=== PATIENT | female | born 1950 | race Caucasian/White ===

== ENCOUNTER 2021-11-19 07:56 | Inpatient (IN) | payer MEDICARE, BC ==
[~2021-11-19] VITALS: Ht 157.5 cm; Wt 52.6 kg
--- NOTE | 2021-11-19 07:57 | NUR ---
TO ER BED 3, BIB SELF C/O R SIDED CHEST PAIN SHARP LIKE STARTED 5AM TODAY, NON RADIATING, AAOX3, BREATHING EVEN AND NON LABORED, CONNECTED TO MONITOR.
[2021-11-19 08:50] LABS: BASOPHILS % (AUTO) 0.4 % (0.0-2.0); EOSINOPHILS % (AUTO) 0.3 % (0.0-6.0); HEMATOCRIT 39 % (33-45); HEMOGLOBIN 13.3 g/dL (11.5-14.8); LYMPHOCYTES # (AUTO) 1.3 K/uL (0.8-4.8); MEAN CORPUSCULAR HGB CONC 34 g/dl (31.0-36.0); MEAN CORPUSCULAR VOLUME 91 fL (82-100); MONOCYTES # (AUTO) 0.4 K/uL (0.1-1.30); MONOCYTES % (AUTO) 8.8 % (2.0-12.0); NEUTROPHILS # (AUTO) 2.8 K/uL (1.8-8.9); NEUTROPHILS % (AUTO) 61.5 % (43.0-81.0); PLATELET COUNT (AUTO) 220 K/uL (150-450); RED BLOOD CELL COUNT(AUTO) 4.33 MIL/uL (4.0-5.2); WHITE BLOOD COUNT (AUTO) 4.5 K/uL (4.3-11.0)
[2021-11-19 09:06] LABS: ALANINE AMINOTRANSFERASE 42 U/L (12-78); ALBUMIN 3.7 g/dL (3.4-5.0); ALKALINE PHOSPHATASE 55 U/L (46-116); ASPARTATE AMINOTRANSFERASE 23 U/L (15-37); BILIRUBIN,TOTAL 0.4 mg/dL (0.2-1.0); CALCIUM, SERUM 8.8 mg/dL (8.5-10.1); CARBON DIOXIDE 30 mmol/L (21-32); CHLORIDE 105 mmol/L (98-107); CREATININE 0.7 mg/dL (0.6-1.3); GLUCOSE 88 mg/dL (74-106); POTASSIUM 3.5 mmol/L (3.5-5.1); SODIUM SERUM 138 mmol/L (136-145); TOTAL PROTEIN, SERUM 6.9 g/dL (6.4-8.2); UREA NITROGEN, BLOOD 12 mg/dL (7-18)
[2021-11-19] MEDS ORDERED: ASPIRIN 325 MG TABLET PO ONE (10:30)
[2021-11-19] MEDS ORDERED: ASPIRIN 325 MG TABLET ONE (10:40)
--- NOTE | 2021-11-19 11:00 | NUR ---
CALLED [facility] [phone] NO BEDS AVAILABLE AT THIS TIME. BUT ASKED FOR PT PCP TO CALL THE TRANSFER CENTER.
[2021-11-19] MEDS ORDERED: FLUT16SP (11:07)
[2021-11-19] MEDS ORDERED: GABA-532 PO (11:07)
[2021-11-19] MEDS ORDERED: RIBO400T PO (11:07)
[2021-11-19] MEDS ORDERED: MAGN400T26 PO (11:07)
[2021-11-19] MEDS ORDERED: VITA1TAB56 PO (11:07)
[2021-11-19] MEDS ORDERED: TURM500C9 PO (11:07)
[2021-11-19] MEDS ORDERED: TRAZ-257 PO (11:07)
[2021-11-19] MEDS ORDERED: PANC1CAP PO (11:07)
[2021-11-19] MEDS ORDERED: OMEG1CAP40 PO (11:07)
[2021-11-19] MEDS ORDERED: CRAN425C6 PO (11:07)
[2021-11-19] MEDS ORDERED: THIO100C2 PO (11:07)
[2021-11-19] MEDS ORDERED: OMEP20CA15 PO (11:07)
[2021-11-19] MEDS ORDERED: CALC-1143 PO (11:07)
[2021-11-19] MEDS ORDERED: ALPR0.255 PO (11:07)
[2021-11-19] MEDS ORDERED: BISO5TAB20 PO (11:07)
[2021-11-19] MEDS ORDERED: CHOL400T PO (11:07)
[2021-11-19] MEDS ORDERED: TRAZ-182 PO (11:07)
[2021-11-19] MEDS ORDERED: LACT1CAP71 PO (11:07)
[2021-11-19] MEDS ORDERED: POTA10TA PO (11:07)
--- NOTE | 2021-11-19 11:30 | NUR ---
PATIENT SPOKE TO HER PRIMARY MD AND AGREED TO BE ADMITTED IN [facility] FOR OBSERVATION, AWARE
--- NOTE | 2021-11-19 11:32 | NUR ---
COVID SWAB DONE AND SENT TO LAB
--- NOTE | 2021-11-19 11:38 | NUR ---
[facility] CALLED QUALITY IMPROVEMENT SPECIALIST PAGED.
[2021-11-19] MEDS ORDERED: ACETAMINOPHEN 325 MG TABLET PO PRN (12:00)
[2021-11-19] MEDS ORDERED: ONDANSETRON HCL/PF 4 MG/2 ML VIAL IVP PRN (12:00)
[2021-11-19] MEDS ORDERED: MORPHINE SULFATE INJ 2 MG/ML DISP.SYRIN IV PRN (12:00)
[2021-11-19] MEDS ORDERED: ALPRAZOLAM 0.25 MG TABLET PO PRN (12:00)
[2021-11-19] MEDS ORDERED: LABETALOL 20 MG/4 ML VIAL IV PRN (12:00)
--- NOTE | 2021-11-19 13:31 | NUR ---
REPORT GIVEN TO MEGGAN FOFANA FOR [facility].
--- NOTE | 2021-11-19 13:45 | NUR ---
RN NOTE- PT TRANSFERRED FROM ED TO [facility]-2. ADMIT TELE FOR CHEST PAIN. PT COMFORTABLE . BEGIN ADMIT PROCESS
--- NOTE | 2021-11-19 13:49 | NUR ---
TRANSFERRED TO BED 314 IN STABLE CONDITION
--- NOTE | 2021-11-19 13:50 | NUR ---
RN NOTE-71 Y/O FEMALE ADMITTED TELE FOR CHEST PAIN. PT CAME IN FROM HOME W CHEST PAIN SINCE 0500 THIS AM. PT TOOK ONE CHILDR[employer] ASA TABLET BEFORE COMING. PT VS- BP- 162/85, HR- 62/SR, RR- 20, T- 97.6, SATS 99% RA. PT STATES MINOR PAIN STILL PRESENT IN CHEST ON LEFT SIDE. TROPONIN AT 52, REST OF LABS UNREMARKABLE. IV TO LAC #20G. BOTHERING PT SO IT WAS REMOVED. CT ANGIO CONSENT SIGNED. MIDLINE ORDERED THOUGH PT WILL ACCEPT IV 20g TOMORROW AM BEFORE CT IF TAKEN OUT IMMEDIATELY AFTER. SIDE RAILS UP, BED LOCKED, CALL LIGHT IN REACH. MONITOR / ASSIST
[2021-11-19] MEDS ORDERED: ENOXAPARIN SODIUM 40 MG/0.4 ML DISP.SYRIN SQ SCH ×2 (15:00→18:00)
[2021-11-19 16:02] VITALS: BP 162/85
[2021-11-19] MEDS: CALCIUM CARBONATE 500 MG TAB.CHEW PO SCH (16:28)
[2021-11-19] MEDS ORDERED: HYDROCODONE/APAP 5/325MG TABLET PO PRN (16:30)
[2021-11-19] MEDS ORDERED: GABAPENTIN 300 MG CAPSULE PO SCH (17:00)
--- NOTE | 2021-11-19 18:53 | NUR ---
RN CLOSING NOTE- PT IN ROOM , AOX4, INTERACTIVE AMBULATORY. DENIES PAIN. NORCO TABLET RELIEVED BACK PAIN. PO INTAKE GOOD ,NEEDS ATTENDED. CT SCAN CONSENT READY SIGNED IN CHART. BED LOCKED , SIDE RAILS UP, CALL LIGHT IN REACH.
--- NOTE | 2021-11-19 19:50 | NUR ---
BURNING MACHINE OPERATOR OPENING NOTE PATIENT AWAKE IN ROOM, ALERT/ORIENTED X 3, PT ABLE TO MAKE NEEDS KNOWN. PT STABLE ON RA, NO S/S OF DISTRESS OR SOB NOTED, BREATHING EVEN AND UNLABORED. PT ON EXTERNAL MANGLE FEEDER READING SINUS RHYTHM, HR: 66. NO IV ACCESS NOTED, PER DAY SHIFT NURSE AWARE AND PATIENT AGREED TO INSERTION OF #20G IV ACCESS BEFORE CT ANGIO BUT WANTS IT REMOVED AFTER PROCEDURE. PT IS AMBULATORY AND STABLE. SAFETY MEASURES IN PLACE: CALL LIGHT WITHIN REACH, SIDE RAILS UP X 2, BED LOCKED IN LOWEST POSITION, TABLE WITHIN REACH. WILL CONTINUE TO MONITOR PATIENT
[2021-11-19 20:00] VITALS: BP 129/89
[2021-11-19] MEDS: POTASSIUM CHLORIDE 10 MEQ TABLET.SA PO SCH (21:51)
[2021-11-19] MEDS ORDERED: TRAZODONE 50 MG TABLET PO SCH (22:00)
[2021-11-20] VITALS: BP 143/81
[2021-11-20 04:00] VITALS: BP 154/90
--- NOTE | 2021-11-20 06:57 | NUR ---
PARAGLIDING INSTRUCTOR CLOSING NOTE PATIENT AWAKE IN ROOM, ALERT/ORIENTED X 3, PT ABLE TO MAKE NEEDS KNOWN. PT STABLE ON RA, NO S/S OF DISTRESS OR SOB NOTED, BREATHING EVEN AND UNLABORED. PT ON EXTERNAL MANAGER DRUG READING SINUS RHYTHM, HR: 71. INSERTED IV ACCESS ON LEFT AC #20G, INTACT AND FLUSHING WELL. PT IS AMBULATORY AND STEADY. MEDICATIONS GIVEN ORDERED, PT NEEDS MET THROUGHOUT SHIFT. SAFETY MEASURES IN PLACE: CALL LIGHT WITHIN REACH, SIDE RAILS UP X 2, BED LOCKED IN LOWEST POSITION, TABLE WITHIN REACH. WILL ENDORSE TO DAY SHIFT NURSE FOR CONTINUITY OF CARE
[2021-11-20 07:28] LABS: EOSINOPHILS % (AUTO) 0.5 % (0.0-6.0); HEMATOCRIT 42 % (33-45); HEMOGLOBIN 14.3 g/dL (11.5-14.8); LYMPHOCYTES # (AUTO) 1.7 K/uL (0.8-4.8); LYMPHOCYTES % (AUTO) 32.8 % (20.0-44.0); MEAN CORPUSCULAR HGB CONC 34 g/dl (31.0-36.0); MEAN CORPUSCULAR VOLUME 90 fL (82-100); MONOCYTES # (AUTO) 0.4 K/uL (0.1-1.30); MONOCYTES % (AUTO) 7.8 % (2.0-12.0); NEUTROPHILS # (AUTO) 2.9 K/uL (1.8-8.9); NEUTROPHILS % (AUTO) 57.9 % (43.0-81.0); PLATELET COUNT (AUTO) 244 K/uL (150-450); RED BLOOD CELL COUNT(AUTO) 4.65 MIL/uL (4.0-5.2); WHITE BLOOD COUNT (AUTO) 5.1 K/uL (4.3-11.0)
[2021-11-20] MEDS ORDERED: PANTOPRAZOLE 40 MG TABLET.DR PO SCH (07:30)
--- NOTE | 2021-11-20 07:47 | NUR ---
DIRECTOR OF COMPENSATION OPENING NOTE Patient in bed, awake. A/O x 4, able to make needs known. On room air, breathing evenly and unlabored. No SOB or s/s of distress noted. IV access on LAV #20G SL, intact and patent. On tele monitoring showing SR, HR on the 70's. Safety precautions in place: bed in low, locked position; siderails up x 2; call light within reach. Will continue to monitor.
[2021-11-20 08:12] LABS: ALBUMIN 3.8 g/dL (3.4-5.0); BILIRUBIN,TOTAL 0.5 mg/dL (0.2-1.0); CREATININE 0.8 mg/dL (0.6-1.3); MAGNESIUM 2.3 mg/dL (1.8-2.4); PHOSPHORUS 3.6 mg/dL (2.5-4.9); POTASSIUM 3.4 mmol/L (3.5-5.1); TOTAL PROTEIN, SERUM 7.3 g/dL (6.4-8.2)
[2021-11-20 08:37] VITALS: BP 123/79
--- NOTE | 2021-11-20 08:50 | NUR ---
RN NOTE Patient brought to radiology room for procedure.
[2021-11-20] MEDS ORDERED: MAGNESIUM OXIDE 400 MG TABLET PO SCH (09:00)
[2021-11-20] MEDS ORDERED: FLUTICASONE PROPIONATE 16 GM BOTTLE NS SCH (09:00)
[2021-11-20] MEDS ORDERED: NITROGLYCERIN 0.4 MG/TAB BOTTLE SL ONE (09:00)
[2021-11-20] MEDS ORDERED: VALSARTAN 80 MG TABLET PO SCH (09:00)
[2021-11-20] MEDS ORDERED: ATORVASTATIN 10 MG TABLET PO SCH (09:00)
[2021-11-20] MEDS ORDERED: METOPROLOL TARTRATE INJ 5 MG/5 ML AMPUL IVP PRN (09:00)
[2021-11-20] MEDS ORDERED: POTASSIUM CHLORIDE 20 MEQ TAB.PRT.SR PO ONE (09:00)
[2021-11-20] MEDS ORDERED: CHOLECALCIFEROL (VITAMIN D 3) 400 UNIT TABLET PO SCH (09:00)
[2021-11-20] MEDS: CALCIUM CARBONATE 500 MG TAB.CHEW PO SCH (09:23)
[2021-11-20] MEDS: POTASSIUM CHLORIDE 10 MEQ TABLET.SA PO SCH (09:24)
[2021-11-20 09:25] VITALS: BP 125/79
--- NOTE | 2021-11-20 09:25 | NUR ---
RN NOTE Patient brought back to room 314-1.
[2021-11-20 10:25] LABS: CHOLESTEROL 183 mg/dL (<200); HDL CHOLESTEROL 82 mg/dL (40-60); LDL 84 mg/dL (0-99); TRIGLYCERIDES 54 mg/dL (30-150)
--- NOTE | 2021-11-20 11:00 | NUR ---
RN NOTE Received critical value for Troponin I, 56. Dr. Coleman notified; no new orders given.
--- NOTE | 2021-11-20 12:25 | NUR ---
DISCHARGE NOTE Received order for discharge. Patient is A/O x 4, able to make needs known. Stable on room air, breathing evenly and unlabored. No SOB or s/s of distress noted. Discharge instructions given both verbally and in written form, verbalized understanding. All belongings accounted for, belonging sheet signed. IV access removed, catheter tip intact; pressure dressing applied, no signs of bleeding noted. ID band removed. Patient left in stable condition via private car.
[2021-11-21] MEDS ORDERED: BISOPROLOL FUMARATE 5 MG TABLET PO SCH (09:00)
== END 2021-11-20 12:25 | disposition home or self-care (01) | DRG 282 ==
LOC: ER 08:03 → TELE 13:11
PROVIDERS: ADMIT Internal Medicine; ATTEND Internal Medicine
DX: I21.4 Non-ST elevation (NSTEMI) myocardial infarction (principal); F41.9 Anxiety disorder, unspecified; K21.9 Gastro-esophageal reflux disease without esophagitis; I10 Essential (primary) hypertension; Z20.822 Contact with and (suspected) exposure to COVID-19
CPT/HCPCS: 36415; 71045-TC; 75574; 80053-TC; 80061-TC; 83735-TC; 84100-TC; 84484-TC; 85025-TC; 87081-TC; 93307-TC; G0378; J1650

== ENCOUNTER 2023-08-13 11:08 | Emergency (ER) | payer MEDICARE, BC ==
[~2023-08-13] VITALS: Ht 157.5 cm; Wt 48.5 kg
[~2023-08-13 11:08] MED LIST: ALPR0.255 PO; BISO5TAB20 PO; CALC-1143 PO; CHOL400T PO; CRAN425C6 PO; FLUT16SP; GABA-532 PO; LACT1CAP71 PO; MAGN400T26 PO; OMEG1CAP40 PO; OMEP20CA15 PO; PANC1CAP PO; POTA10TA PO; RIBO400T PO; THIO100C2 PO; TRAZ-182 PO; TRAZ-257 PO; TURM500C9 PO; VITA1TAB56 PO
[2023-08-13] MEDS ORDERED: TRAMADOL HCL 50 MG TABLET ONE (11:55)
[2023-08-13] MEDS ORDERED: ONDANSETRON 4 MG TAB.RAPDIS ONE (11:56)
[2023-08-13] MEDS ORDERED: TRAMADOL HCL 50 MG TABLET PO ONE (12:00)
[2023-08-13] MEDS ORDERED: ONDANSETRON 4 MG TAB.RAPDIS PO ONE (12:00)
[2023-08-13 12:21] LABS: BASOPHILS % (AUTO) 0.4 % (0.0-2.0); EOSINOPHILS % (AUTO) 0.7 % (0.0-6.0); HEMATOCRIT 40 % (33-45); HEMOGLOBIN 13.7 g/dL (11.5-14.8); LYMPHOCYTES # (AUTO) 1.2 K/uL (0.8-4.8); LYMPHOCYTES % (AUTO) 22.6 % (20.0-44.0); MEAN CORPUSCULAR HEMOGLOBIN 33 PG (26.0-33.0); MEAN CORPUSCULAR HGB CONC 34 g/dl (31.0-36.0); MEAN CORPUSCULAR VOLUME 96 fL (82-100); MONOCYTES # (AUTO) 0.4 K/uL (0.1-1.30); MONOCYTES % (AUTO) 7.9 % (2.0-12.0); NEUTROPHILS # (AUTO) 3.7 K/uL (1.8-8.9); NEUTROPHILS % (AUTO) 68.4 % (43.0-81.0); PLATELET COUNT (AUTO) 235 K/uL (150-450); RED BLOOD CELL COUNT(AUTO) 4.17 MIL/uL (4.0-5.2); RED CELL DISTRIBUTION WIDTH 13.7 % (11.5-15.0); WHITE BLOOD COUNT (AUTO) 5.4 K/uL (4.3-11.0)
[2023-08-13 12:34] LABS: INR 1.18 (0.91-1.10); PARTIAL THROMBOPLASTIN TIME 28.5 SEC (24.3-34.3); PROTHROMBIN TIME 12.4 SECS (9.2-11.1)
[2023-08-13 12:43] LABS: CALCIUM, SERUM 9.2 mg/dL (8.5-10.1); CREATININE 0.7 mg/dL (0.6-1.3)
[2023-08-13 12:55] LABS: ALBUMIN 3.7 g/dL (3.4-5.0); BILIRUBIN,DIRECT 0.1 mg/dL (0.0-0.2); BILIRUBIN,TOTAL 0.5 mg/dL (0.2-1.0); TOTAL PROTEIN, SERUM 6.9 g/dL (6.4-8.2)
[2023-08-13] MEDS ORDERED: ONDA4TAB5 PO (13:00)
[2023-08-13 13:28] VITALS: BP 130/86; TEMP 98.1; O2SAT 96
== END 2023-08-13 13:28 | disposition home or self-care (01) ==
LOC: ER 11:12
DX: G89.29 Other chronic pain (principal); M54.50 Low back pain, unspecified; R11.0 Nausea; I10 Essential (primary) hypertension; Z88.2 Allergy status to sulfonamides; Z88.0 Allergy status to penicillin; Z88.8 Allergy status to other drugs, medicaments and biological substances; Z60.2 Problems related to living alone; Z79.899 Other long term (current) drug therapy
CPT/HCPCS: 99285; 70450; 71045; 93005; 85025; 80048; 80076; 36415; 85730; Q0162

== ENCOUNTER 2025-07-30 13:36 | Emergency (ER) | payer MEDICARE, BC ==
[~2025-07-30] VITALS: Ht 152.4 cm; Wt 50.8 kg
[~2025-07-30 13:36] MED LIST changes: +ONDA4TAB5 PO
[2025-07-30 13:50] VITALS: BP 133/80; TEMP 97.7; O2SAT 99
== END 2025-07-30 15:15 | disposition home or self-care (01) ==
LOC: ER 13:54
DX: S09.90XA Unspecified injury of head, initial encounter (principal); I11.9 Hypertensive heart disease without heart failure; I73.00 Raynaud's syndrome without gangrene; Z88.0 Allergy status to penicillin; Z88.1 Allergy status to other antibiotic agents; Z88.2 Allergy status to sulfonamides; W22.8XXA Striking against or struck by other objects, initial encounter; Y93.01 Activity, walking, marching and hiking; Y92.89 Other specified places as the place of occurrence of the external cause; Y99.8 Other external cause status
CPT/HCPCS: 70450-TC